=== PATIENT | male | born 2000 | race Caucasian/White ===

== ENCOUNTER 2021-02-09 10:00 | Emergency (ER) | payer OTHER ==
[2021-02-09 10:14] VITALS: BP 138/102; PULSE 98; RESP 18; TEMP 97.9
--- NOTE | 2021-02-09 10:45 | ED ---
General Adult HPI - General Chief complaint: Urogenital Stated complaint: groin pain Time Seen by Provider: 02/09/21 10:10 Source: patient, RN notes reviewed, old records reviewed Mode of arrival: ambulatory Limitations: no limitations - History of Present Illness Initial comments: This is a 20-year-old male presents emergency Department with a sustained erection. Patient states he's on Abilify and Ritalin as well as Catapres night. Patient states he normally takes Catapres night and he didn't last night he woke up this morning and erection last about 3-1/2 hours. Patient states since then erection is gone down and there is no more pain at this time but he wanted to come in to get checked out. Patient states this is never happened before. P atient states he did not take anything that his prescribed meds with the exception of Catapres which she did not take at his normal bedtime. Patient denies any other problems or pain. - Related Data Allergies Allergy/AdvReac Type Severity Reaction Status Date / Time amphetamine [From Adderall] Allergy Unknown Verified 02/09/21 10:08 dextroamphetamine Allergy Unknown Verified 02/09/21 10:08 [From Adderall] Review of Systems ROS Statement: Those systems with pertinent positive or pertinent negative responses have been documented in the HPI. ROS Other: All systems not noted in ROS Statement are negative. Past Medical History Past Medical History: No Reported History History of Any Multi-Drug Resistant Organisms: None Reported Past Surgical History: No Surgical Hx Reported Past Psychological History: Bipolar, Depression Smoking Status: Former smoker Past Alcohol Use History: Occasional Past Drug Use History: None Reported General Exam - General Exam Comments Initial Comments: GENERAL Patient is well-developed and well-nourished. Patient is in mild distress. EYES Patient's pupils are equal and round. Extraocular motion is intact SKIN Unremarkable NEURO The patient is alert and oriented 3 PYSCH Patient has normal interpersonal interactions. MUSCULOSKELETAL All 4 times and full range of motion GENITALIA On examination the patient penis is not tender is not correct and there are no lesions redness noted. Normal exam Limitations: no limitations Course Vital Signs 02/09/21 10:09 Temperature 97.9 F Pulse Rate 98 Respiratory 18 Rate Blood Pressure 138/102 O2 Sat by Pulse 98 Oximetry Medical Decision Making - Medical Decision Making I offered to give the patient Catapres here he refused he said he has since Catapres home and he'll take it when he gets home. Disposition Clinical Impression: Priapism Disposition: HOME SELF-CARE Condition: Good Instructions (If sedation given, give patient instructions): Priapism (ED) Additional Instructions: Patient needs returns emergency department if the symptoms recur. Patient needs takes Catapres daily. Is patient prescribed a controlled substance at d/c from ED?: No Referrals: Nonstaff,Physician [Primary Care Provider] - 1-2 days Time of Disposition: 10:45
== END 2021-02-09 11:05 | disposition home or self-care (01) ==
LOC: EC 10:00
DX: N48.30 Priapism, unspecified (principal); F31.9 Bipolar disorder, unspecified; Z87.891 Personal history of nicotine dependence
CPT/HCPCS: 99283

== ENCOUNTER 2021-04-16 23:34 | Emergency (ER) | payer OTHER ==
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
[2021-04-16] MEDS ORDERED: SODIUM CHLORIDE 0.9% 1,000 ML IV STA (23:41)
[2021-04-17 00:08] LABS: Basophils % (A) 0 %; Eosinophils # (A) 0.1 k/uL (0-0.7); Eosinophils % (A) 1 %; HCT 42.3 % (39.0-53.0); HGB 14.9 gm/dL (13.0-17.5); Lymphocytes # (A) 1.3 k/uL (1.0-4.8); Lymphocytes % (A) 18 %; MCH 29.1 pg (25.0-35.0); MCHC 35.1 g/dL (31.0-37.0); MCV 82.8 fL (80.0-100.0); Mean Platelet Volume 7.9; Monocytes # (A) 0.7 k/uL (0-1.0); Monocytes % (A) 10 %; Neutrophils # (A) 4.8 k/uL (1.3-7.7); Neutrophils % (A) 69 %; Platelet Count 263 k/uL (150-450); RBC 5.11 m/uL (4.30-5.90); RDW 12.3 % (11.5-15.5)
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
--- NOTE | 2021-04-17 00:10 | XR ---
EXAMINATION TYPE: XR chest 1V portable DATE OF EXAM: 04/16/2021 COMPARISON: NONE HISTORY: Pain TECHNIQUE: Single view FINDINGS: Heart and mediastinum are normal. Lungs are clear. Diaphragm is normal. Bony thorax is inta ct. There is no sign of pleural effusion or pneumothorax. IMPRESSION: Normal chest.
--- NOTE | 2021-04-17 00:12 | XR ---
EXAMINATION TYPE: XR wrist complete RT DATE OF EXAM: 04/17/2021 COMPARISON: NONE HISTORY: Wrist pain TECHNIQUE: 4 views FINDINGS: Carpal bones appear intact. I see no fracture nor dislocation. Metacarpals appear intact. T he radiocarpal joint appears normal. IMPRESSION: Normal right wrist exam.
[2021-04-17 00:16] LABS: INR 1.1 (<1.2); Partial Thromboplastin Time 22.7 sec (22.0-30.0); Prothrombin Time 11.3 sec (9.0-12.0)
[2021-04-17 00:25] LABS: ALT 24 U/L (4-49); AST 41 U/L (17-59); African American GFR (CKD) >90 (>60 ml/min/1.73 sqM); Albumin 4.8 g/dL (3.5-5.0); Alcohol <10 mg/dL; Alkaline Phosphatase 83 U/L (38-126); Anion Gap 13 mmol/L; Blood Urea Nitrogen 23 mg/dL (9-20); Calcium 10.4 mg/dL (8.4-10.2); Carbon Dioxide 28 mmol/L (22-30); Chloride 100 mmol/L (98-107); Glucose 106 mg/dL (74-99); Non-African American GFR(CKD) >90 (>60 ml/min/1.73 sqM); Sodium 141 mmol/L (137-145); Total Bilirubin 0.6 mg/dL (0.2-1.3); Total Protein 8.2 g/dL (6.3-8.2)
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
[2021-04-17 00:56] VITALS: BP 134/103; PULSE 82; RESP 17; TEMP 98.7
== END 2021-04-17 01:01 | disposition home or self-care (01) ==
LOC: EC 23:34
DX: S60.211A Contusion of right wrist, initial encounter (principal); F31.9 Bipolar disorder, unspecified; Z87.891 Personal history of nicotine dependence; V09.9XXA Pedestrian injured in unspecified transport accident, initial encounter; Y92.410 Unspecified street and highway as the place of occurrence of the external cause
CPT/HCPCS: 86900; 86901; 80053; 84484; 85025; 85610; 85730; 86850; 72170; 73110; 71045; 72125; 70486; 70450; 99285; G0480; 80320